=== PATIENT | female | born 1950 | race Caucasian/White ===

== ENCOUNTER 2017-11-06 08:50 | Day surgery (SDC) | payer MEDICARE ==
[2017-11-06] MEDS ORDERED: ceFAZolin INJ 1,000 MG VIAL ONE (09:26)
[2017-11-06] MEDS ORDERED: ceFAZolin 2 GM PREMIX 50 ML IV SCH (09:30)
[2017-11-06] MEDS ORDERED: CHLORHEXIDINE GLUCONATE 2 % 1 PACK (2 CLOTHS) TOPICAL SCH (09:30)
[2017-11-06] MEDS ORDERED: Hold AM Insulin & AM Hypoglycemic medications in diabetic patients PRN (09:30)
[2017-11-06] MEDS ORDERED: POVIDONE IODINE 5% (ANTISEPSIS KIT) 4 APPLICATIONS EACH NARE SCH (09:30)
[2017-11-06] MEDS ORDERED: MUPIROCIN 2% OINT 1 APPLIC/GM SYR NASAL SCH (09:30)
[2017-11-06] MEDS ORDERED: NO Heparin, Lovenox, Coumadin at least 12 hours prior to procedure. PRN (09:30)
[2017-11-06] MEDS ORDERED: LOSA100T PO (09:40)
[2017-11-06] MEDS ORDERED: DILT120T PO (09:40)
[2017-11-06] MEDS ORDERED: ALPR0.25 PO (09:40)
[2017-11-06] MEDS ORDERED: APIX5TAB PO (09:40)
[2017-11-06] MEDS ORDERED: NS 1000 ML IV SCH (10:00)
--- NOTE | 2017-11-06 10:58 | MA ---
cc: Bassem Nicole MD DATE: 11/06/2017 PROCEDURE: Loop recorder insertion. DATE OF PROCEDURE: 11/06/2017. INDICATIONS: Atrial fibrillation. DESCRIPTION OF PROCEDURE: The patient was brought to the DOC Unit in the postabsorptive state. After informed consent was obtained, a [employer] loop recorder was inserted subcutaneously in the left chest. The patient tolerated the procedure well without any apparent complication. Tachybrady pause and atrial fibrillation detection was enabled. The initial R-wave was 0.22 millivolts. The serial number was [id number]. MD SUDHIR Rainey/ISMAEL , 10:33 AM , 10:57 AM
== END 2017-11-06 11:30 | disposition home or self-care (01) ==
LOC: HDOC 08:50 → HDIC 08:51 → HDOC 11:30
PROVIDERS: ATTEND Nuclear Medicine Nuclear Cardiology
DX: I48.91 Unspecified atrial fibrillation (principal); I48.92 Unspecified atrial flutter; I10 Essential (primary) hypertension; Z82.49 Family history of ischemic heart disease and other diseases of the circulatory system; Z79.01 Long term (current) use of anticoagulants
CPT/HCPCS: 33282; C1764; J0690; J7030